=== PATIENT | female | born 1965 | race Caucasian/White ===

== ENCOUNTER 2021-06-16 11:39 | Emergency (ER) | payer OTHER, SELFPAY ==
[~2021-06-16 11:39] MED LIST: Iopamidol 370 76% 125 ML VIAL FS ONE; Sodium Chloride 0.9% 100 ML BAG ONE
[2021-06-16] MEDS ORDERED: Aspirin Chewable 81 MG TAB ONE (11:55)
[2021-06-16] MEDS ORDERED: Sodium Chloride 0.9% 1,000 ML ONE (11:55)
[2021-06-16 12:21] LABS: #Lymphocytes 0.3 thou/uL (1.20-3.40); #Monocytes 0.4 thou/uL (0.11-0.59); %Basophils 0.8 % (0.0-1.0); %Eosinophils 0.2 % (0.0-10.0); %Lymphocytes 4.1 % (21.0-51.0); %Monocytes 5.1 % (0.0-10.0); %Neutrophils 89.7 % (42.0-75.0); Hemoglobin 14.1 g/dL (12.0-16.0); Mean Corpuscular Hemoglobin 28.5 pg (27.0-31.0); Mean Corpuscular Volume 86.4 fL (78.0-98.0); Mean Platelet Volume 8.4 fL (7.4-10.4); Platelet Count 263 thou/uL (130-400); RBC Distribution Width 11.4 % (11.5-14.5); Red Blood Cell (RBC) Count 4.95 mill/uL (4.20-5.40); White Blood Cell (WBC) Count 7.8 thou/uL (4.8-10.8)
[2021-06-16 12:22] LABS: #Basophils 0.1 thou/uL (0.0-0.2)
[2021-06-16 12:36] LABS: ALT (SGPT) 26 U/L (8-55); AST (SGOT) 22 U/L (5-34); Alkaline Phosphatase 60 U/L (40-110); Anion Gap 15 mmol/L (10-20); BUN (Urea Nitrogen) 14 mg/dL (9.8-20.1); Bilirubin, Total 1.1 mg/dL (0.2-1.2); CK (CPK) 35 U/L (29-168); Calc. Creatinine Clearance 0 mL/min (70-130); Calcium 8.6 mg/dL (7.8-10.44); Carbon Dioxide 24 mmol/L (22-29); Chloride 103 mmol/L (98-107); Globulin 3.7 g/dL (2.4-3.5); Glucose 141 mg/dL (70-105); Potassium 3.8 mmol/L (3.5-5.1); Protein, Total 6.7 g/dL (6.0-8.3); Sodium 138 mmol/L (136-145)
[2021-06-16] MEDS ORDERED: Cefepime 1 GM VIAL ONE (12:55)
== END 2021-06-16 18:40 | disposition short-term general hospital (02) ==
LOC: MADERS 11:39
DX: U07.1 COVID-19 (principal); J96.91 Respiratory failure, unspecified with hypoxia; Z79.899 Other long term (current) drug therapy
CPT/HCPCS: 71275; 80053; 82550; 83605; 84484; 85025; 87040; 93005; J0692; J3490; J7050; Q9967